=== PATIENT | female | born 1950 | race Caucasian/White ===

== ENCOUNTER 2023-02-03 11:45 | Emergency (ER) | payer MEDICARE, BC ==
[2023-02-03 12:16] LABS: Bilirubin Small (Negative); Blood, Urine Small (Negative); Clarity Cloudy (Clear); Glucose, Urine (Dipstick) Negative (Negative); Ketone, Urine 15 mg/dL (Negative); Leukocyte Moderate (Negative); Nitrite Negative (Negative); Protein, Urine (Dipstick) 100 mg/dL (Neg-Trace); RBC/HPF 0-3 HPF (0-3); Specific Gravity, Urine 1.025 (1.005-1.030); Urobilinogen 0.2 mg/dL (Less than 2)
[2023-02-03 12:17] LABS: Bacteria/HPF 3+ HPF (None Seen); CAUTI Indications for Culture Fever or rigors; WBC/HPF Greater than 50 HPF (0-3)
[2023-02-03 12:18] LABS: Urine Culture Reflex Yes Yes
== END 2023-02-03 12:28 | disposition home or self-care (01) ==
LOC: MADERS 11:45
DX: N39.0 Urinary tract infection, site not specified (principal); I10 Essential (primary) hypertension; Z79.899 Other long term (current) drug therapy
CPT/HCPCS: 81001; 87077; 87086; 87186; 99283

== ENCOUNTER 2023-12-02 23:04 | Emergency (ER) | payer MEDICARE ==
[2023-12-02] MEDS ORDERED: Ondansetron PF 4 MG/2 ML Vial ONE (23:23)
[2023-12-02] MEDS ORDERED: Lactated Ringer's 1,000 ML ONE (23:23)
[2023-12-02 23:25] LABS: Bilirubin Negative (Negative); Blood, Urine Trace (Negative); Glucose, Urine (Dipstick) Negative (Negative); Ketone, Urine Trace mg/dL (Negative); Leukocyte Large (Negative); Nitrite Positive (Negative); Protein, Urine (Dipstick) 30 mg/dL (Neg-Trace); Specific Gravity, Urine 1.025 (1.005-1.030); Urobilinogen 0.2 mg/dL (Less than 2)
[2023-12-02 23:28] LABS: Bacteria/HPF 3+ HPF (None Seen); CAUTI Indications for Culture Dysuria,urgency,freq; Clarity Turbid (Clear); RBC/HPF 0-3 HPF (0-3); Squamous Epithelial 0-3 HPF (0-3); Urine Culture Reflex Yes Yes; WBC/HPF Greater than 50 HPF (0-3)
[2023-12-02 23:36] LABS: Eosinophils 1 % (0-10); Hematocrit 43.5 % (36.0-47.0); Hemoglobin 13.8 g/dL (12.0-16.0); Lymphocytes 12 % (21-51); MDiff Complete? YES; Mean Corpuscular HGB CONC 31.7 g/dL (32.0-36.0); Mean Corpuscular Hemoglobin 28.6 pg (27.0-31.0); Mean Corpuscular Volume 90.2 fl (78.0-98.0); Mean Platelet Volume 8.3 fL (7.4-10.4); Monocytes 7 % (0-10); Neutrophil 80 % (42-75); Platelet Count 190 10x3/uL (130-400); RBC Distribution Width 12.1 % (11.5-14.5); Red Blood Cell (RBC) Count 4.82 mill/uL (4.20-5.40); White Blood Cell (WBC) Count 16.3 10x3/uL (4.8-10.8)
[2023-12-02] MEDS ORDERED: Ketorolac Tromethamine 30 MG (1 mL) VIAL ONE (23:40)
[2023-12-02 23:47] LABS: ALT (SGPT) 36 U/L (8-55); AST (SGOT) 33 U/L (5-34); Albumin 3.6 g/dL (3.4-4.8); Alkaline Phosphatase 45 U/L (40-110); Anion Gap 18 mmol/L (10-20); BUN (Urea Nitrogen) 20 mg/dL (9.8-20.1); Bilirubin, Total 1.6 mg/dL (0.2-1.2); Calc. Creatinine Clearance 0 mL/min (70-130); Calcium 9.5 mg/dL (7.8-10.44); Carbon Dioxide 20 mmol/L (23-31); Chloride 104 mmol/L (98-107); Estimated GFR 61; Globulin 3.3 g/dL (2.4-3.5); Glucose 217 mg/dL (83-110); Potassium 4.1 mmol/L (3.5-5.1); Protein, Total 6.9 g/dL (5.8-8.1); Sodium 138 mmol/L (136-145)
[2023-12-03] MEDS ORDERED: cefTRIAXone (ROCEPHIN) 1 GM VIAL ONE (00:04)
== END 2023-12-03 00:22 | disposition home or self-care (01) ==
LOC: MADERS 23:04
DX: N39.0 Urinary tract infection, site not specified (principal); E80.6 Other disorders of bilirubin metabolism; E11.9 Type 2 diabetes mellitus without complications; I10 Essential (primary) hypertension; E78.5 Hyperlipidemia, unspecified; Z79.899 Other long term (current) drug therapy
CPT/HCPCS: 36416; 80053; 81001; 83605; 85025; 87077; 87086; 87186; 96365; 96375; J0696; J1885; J2405; J7120